=== PATIENT | male | born 1940 ===

== ENCOUNTER → 2017-03-10 | Outpatient (REF) | LOC: ZLAB.WCH 14:40 | DX: Z01.89 Encounter for other specified special examinations (principal) ==

== ENCOUNTER → 2017-03-17 | Outpatient (REF) | LOC: ZLAB.WCH 14:19 | DX: Z01.89 Encounter for other specified special examinations (principal) ==

== ENCOUNTER → 2017-03-25 | Outpatient (REF) | LOC: ZLAB.WCH 14:37 | DX: Z01.89 Encounter for other specified special examinations (principal) ==